=== PATIENT | female | born 1985 | race Caucasian/White ===

== ENCOUNTER 2018-01-16 02:20 | Outpatient (CLI) | payer MEDICAID, SELFPAY | END 2018-01-16 02:40 | PROVIDERS: PCP Internal Medicine Sleep Medicine; Visit Provider Dermatology | DX: L40.9 Psoriasis, unspecified (principal) ==

== ENCOUNTER 2018-01-21 01:11 | Outpatient (CLI) | payer MEDICAID, SELFPAY | END 2018-01-21 01:31 | PROVIDERS: PCP Internal Medicine Sleep Medicine; Visit Provider Dermatology | DX: L40.9 Psoriasis, unspecified (principal) | CPT/HCPCS: 96910 ==

== ENCOUNTER 2018-01-23 01:45 | Outpatient (CLI) | payer MEDICAID, SELFPAY | END 2018-01-23 02:05 | PROVIDERS: PCP Internal Medicine Sleep Medicine; Visit Provider Dermatology | DX: L40.9 Psoriasis, unspecified (principal) | CPT/HCPCS: 96910 ==

== ENCOUNTER 2018-01-25 02:03 | Outpatient (CLI) | payer MEDICAID, SELFPAY | END 2018-01-25 02:23 | PROVIDERS: PCP Internal Medicine Sleep Medicine; Visit Provider Dermatology | DX: L40.9 Psoriasis, unspecified (principal) | CPT/HCPCS: 96910 ==

== ENCOUNTER 2018-01-28 08:29 | Outpatient (CLI) | payer MEDICAID, SELFPAY | END 2018-01-28 08:49 | PROVIDERS: PCP Internal Medicine Sleep Medicine; Visit Provider Dermatology | DX: L40.9 Psoriasis, unspecified (principal) | CPT/HCPCS: 96910 ==

== ENCOUNTER 2018-01-30 02:22 | Outpatient (CLI) | payer MEDICAID, SELFPAY | END 2018-01-30 02:42 | PROVIDERS: PCP Internal Medicine Sleep Medicine; Visit Provider Dermatology | DX: L40.9 Psoriasis, unspecified (principal) ==

== ENCOUNTER 2018-02-01 03:16 | Outpatient (CLI) | payer MEDICAID, SELFPAY | END 2018-02-01 03:36 | PROVIDERS: PCP Internal Medicine Sleep Medicine; Visit Provider Dermatology | DX: L40.9 Psoriasis, unspecified (principal) | CPT/HCPCS: 96910 ==

== ENCOUNTER 2018-02-04 01:03 | Outpatient (CLI) | payer MEDICAID, SELFPAY | END 2018-02-04 01:23 | PROVIDERS: PCP Internal Medicine Sleep Medicine; Visit Provider Dermatology | DX: L40.9 Psoriasis, unspecified (principal) | CPT/HCPCS: 96910 ==

== ENCOUNTER 2018-02-06 02:09 | Outpatient (CLI) | payer MEDICAID, SELFPAY | END 2018-02-06 02:29 | PROVIDERS: PCP Internal Medicine Sleep Medicine; Visit Provider Dermatology | DX: L40.9 Psoriasis, unspecified (principal) | CPT/HCPCS: 96910 ==

== ENCOUNTER 2018-02-08 02:46 | Outpatient (CLI) | payer MEDICAID, SELFPAY | END 2018-02-08 03:06 | PROVIDERS: PCP Internal Medicine Sleep Medicine; Visit Provider Dermatology | DX: L40.9 Psoriasis, unspecified (principal); Z53.8 Procedure and treatment not carried out for other reasons ==

== ENCOUNTER 2018-02-11 02:08 | Outpatient (CLI) | payer MEDICAID, SELFPAY | END 2018-02-11 02:28 | PROVIDERS: PCP Internal Medicine Sleep Medicine; Visit Provider Dermatology | DX: L40.9 Psoriasis, unspecified (principal) ==

== ENCOUNTER 2018-02-13 02:13 | Outpatient (CLI) | payer MEDICAID, SELFPAY | END 2018-02-13 02:33 | PROVIDERS: PCP Internal Medicine Sleep Medicine; Visit Provider Dermatology | DX: L40.9 Psoriasis, unspecified (principal) | CPT/HCPCS: 96910 ==

== ENCOUNTER 2018-02-15 02:09 | Outpatient (CLI) | payer MEDICAID, SELFPAY | END 2018-02-15 02:29 | PROVIDERS: PCP Internal Medicine Sleep Medicine; Visit Provider Dermatology | DX: L40.9 Psoriasis, unspecified (principal); Z53.8 Procedure and treatment not carried out for other reasons ==

== ENCOUNTER 2018-02-18 01:56 | Outpatient (CLI) | payer MEDICAID, SELFPAY | END 2018-02-18 02:16 | PROVIDERS: PCP Internal Medicine Sleep Medicine; Visit Provider Dermatology | DX: Z53.8 Procedure and treatment not carried out for other reasons (principal); L40.9 Psoriasis, unspecified ==

== ENCOUNTER 2018-02-20 01:59 | Outpatient (CLI) | payer MEDICAID, SELFPAY | END 2018-02-20 02:19 | PROVIDERS: PCP Internal Medicine Sleep Medicine; Visit Provider Dermatology | DX: L40.9 Psoriasis, unspecified (principal) ==